=== PATIENT | female | born 1990 | race Caucasian/White ===

== ENCOUNTER 2020-07-23 08:34 | Emergency (ER) | payer OTHER, SELFPAY ==
[2020-07-23 08:59] VITALS: BP 116/65; PULSE 87; RESP 16; TEMP 36.9; O2SAT 97
--- NOTE | 2020-07-23 09:41 | ED.URI ---
HPI - URI/Sore Throat General Chief Complaint: Upper Respiratory Infection Stated Complaint: sore throat/drainage Time Seen by Provider: 07/23/20 09:00 Source: patient Mode of arrival: ambulatory Limitations: no limitations History of Present Illness HPI Narrative: Patient presents today with a 4-day history of sore throat, congestion, postnasal drip. Denies cough, fever, nausea, vomiting, diarrhea, body aches or weakness. She is currently 30 weeks . Currently rates her sore throat 5/10 and has tried no medication for symptoms prior to arrival. States her sore throat is worse in the mornings when she wakes up. She presents today with her son with similar symptoms. Denies any sick contacts, besides her small son. MD elicited complaint: sore throat Related Data Allergies Allergy/AdvReac Type Severity Reaction Status Date / Time No Known Allergies Allergy Unknown Verified 08/21/16 09:04 Review of Systems Review of Systems: Narrative: CONSTITUTIONAL: Denies body aches, fever, chills, or sweats. EYES: Denies visual changes, redness, or discharge. ENT: Denies rhinorrhea, or otalgia.+ Congestion, sore throat, postnasal drip CARDIOVASCULAR: Denies chest pain, palpitations, or edema. RESPIRATORY: Denies cough or dyspnea. GASTROINTESTINAL: Denies abdominal pain, nausea, vomiting, or diarrhea. GENITOURINARY: Denies dysuria or hematuria. SKIN: Denies rash, itching, or wounds. MUSCULOSKELETAL: Denies back pain, joint pain, or myalgia. NEUROLOGIC: Denies headache, numbness, tingling, or weakness. PSYCH: Denies depression or anxiety. [facility]LY [facility] Past Medical History Medical History (Updated 07/23/20 @ 09:44 by Ashlee Blank, [facility], ) History of hyperemesis gravidarum Social History Social History Smoking status: Never smoker Alcohol intake: never Comments At time of signature, I have reviewed and agree with nursing past medical, surgical, social and family history unless otherwise noted. Please see nursing chart for further information. There is no relevant family history pertinent to the presenting complaint Exam Narrative: Exam Narrative: GENERAL: Well-appearing, well-nourished, and in no acute distress. HEAD: Normocephalic, atraumatic. EYES: EOMI. No redness or drainage. Conjunctivae normal. ENT: Mucous membranes pink and moist. Nares clear. No rhinorrhea. TMs normal bilaterally. Throat normal with small amount of clear postnasal drainage.. Uvula midline. NECK: Normal AROM. Supple. No lymphadenopathy. CHEST: No respiratory distress. Clear to auscultation. HEART: Regular rate and rhythm. No murmur appreciated. Normal peripheral pulses. ABDOMEN: Soft, nontender, gravid, normal active bowel sounds. MUSCULOSKELETAL: No bony tenderness. EXTREMITIES: Normal range of motion. No edema. SKIN: Warm, dry, no rash. Capillary refill normal. Normal skin turgor. NEURO: No focal deficits. Alert and oriented x3. Gait steady. PSYCH: Normal affect. No signs of depression or anxiety. Course Vital Signs Vital signs: Vital Signs Temperature 98.4 F 07/23/20 08:59 Pulse Rate 87 07/23/20 08:59 Respiratory Rate 16 07/23/20 08:59 Blood Pressure 116/65 07/23/20 08:59 Pulse Oximetry 97 07/23/20 08:59 Temperature 98.4 F 07/23/20 08:59 Pulse Rate 87 07/23/20 08:59 Respiratory Rate 16 07/23/20 08:59 Blood Pressure 116/65 07/23/20 08:59 Pulse Oximetry 97 07/23/20 08:59 Reviewed MDM - URI/Sore Throat Differential Diagnosis Differential diagnosis: Likely upper respiratory infection, otitis media, sinusitis, viral infection, pharyngitis and other (Strep throat) Lab Data Attestation: I reviewed the patient's lab results. Labs: Strep Screen Presumptive Negative *(Reference Range: Negative)* Critical Care Time Critical Care Time Critical Care Time: No Discharge Plan Discharge Clinical Impression: Upper respiratory infectio
== END 2020-07-23 09:37 | disposition home or self-care (01) ==
PROVIDERS: Emergency Provider Nurse Practitioner; PCP Family Medicine
DX: J06.9 Acute upper respiratory infection, unspecified (principal)
CPT/HCPCS: 87081; 87880; 99203; G0463

== ENCOUNTER 2020-09-27 04:58 | Inpatient (IN) | payer OTHER, SELFPAY ==
[2020-09-27] VITALS (80 sets, daily range): BP systolic 85–136; BP diastolic 39–119; PULSE 68–128; RESP 16–18; TEMP 36.4–36.8; O2SAT 96–100; BMI 37.9
--- NOTE | 2020-09-27 04:58 | OBADM ---
This patient, Abimbola Coppola, admitted to the OB room Labor/Delivery/Recovery 102 for observation. Patient/family oriented to hospital policies and general routines including ID bracelet, bed and alarms, visiting hours, pain management, procedures, bathroom and other care routines, personal items, smoking policy, room service/diet, and visiting hours. Patient/Family are encouraged to report perceived risks to care and to ask questions if they do not understand what they are told or what they should do.
[2020-09-27 05:34] LABS: Basophils Percent Auto 0.3 % (0.2-1.2); Eosinophils Absolute Auto 0.2 K/mm3 (0-0.3); Eosinophils Percent Auto 1.4 % (0-4.4); Hematocrit 35.3 % (37.0-47.0); Hemoglobin 11.4 g/dL (12.0-15.0); Immature Granulocyte Absolute 0.18 K/mm3 (0.00-0.031); Immature Granulocyte Percent A 1.5 % (0-0.5); Lymphocytes Absolute Auto 3.65 K/mm3 (0.9-3.2); Lymphocytes Percent Auto 29.7 % (18.3-44.2); Mean Corpuscular HGB Conc 32.3 g/dl (32-36); Mean Corpuscular Hemoglobin 26.1 pg (26-34); Mean Platelet Volume 10.6 fl (7.4-10.4); Monocytes Absolute Auto 0.9 K/mm3 (0.1-0.6); Monocytes Percent Auto 7.4 % (2.6-8.5); Neutrophils Absolute Auto 7.3 K/mm3 (1.3-6.7); Neutrophils Percent Auto 59.7 % (45.5-73.1); Platelet Count Result 210 k/mm3 (150-375); Red Blood Count 4.36 M/mm3 (4.2-5.4); Red Cell Distribution Width 14.5 % (11.5-14.5); White Blood Count 12.3 K/mm3 (4.5-10.0)
[2020-09-27] MEDS: AMPICILLIN 2 GM/NS 100 ML 2 GM/100 ML BAG IVPB (05:38)
[2020-09-27] MEDS: LACTATED RINGERS 1,000 ML 125 ML IV CONT ×3 (05:38→09:50)
--- NOTE | 2020-09-27 05:45 | P.HP_ITS ---
H&P: HPI History of Present Illness Date/Time: 09/27/20 05:45 30-year-old 3 para 2 whose last menstrual period was 12/29/2019, EDC is 10/04/2020, presents at 30 weeks gestation for induction labor. She has a history of 2 vaginal deliveries 1 was 0.25 degree this baby's last ultrasound showed it to be 5 lb 10 oz at 37 weeks. She is positive for group B strep. She had a history of gestational diabetes with an abnormal 1hour but a normal 3hour GTT this . Chief Complaint: iol Review of Systems Review of Systems: All systems reviewed & are unremarkable except as noted in HPI and below PMFSH Past Medical History Medical History History of hyperemesis gravidarum Social History Social History Smoking status: Never smoker Alcohol intake: never Spiritual care concerns: No Meds Home Medications and Allergies Home Medications Medication Instructions Recorded Confirmed Type [id number] fum-folic ac-om3 28 pkg PO DAILY 09/12/20 09/27/20 History [One Daily ] Allergies Allergy/AdvReac Type Severity Reaction Status Date / Time No Known Allergies Allergy Unknown Verified 09/12/20 16:37 Vital Signs Vital Signs - 24 hr 09/27/20 05:32 Pulse Rate 88 Blood Pressure 132/80 Exam Const: General: no acute distress Eyes: General: appearance normal, both eyes and all related structures Neck: Neck: supple and no JVD Thyroid: thyroid normal Resp: Effort & Inspection: normal respiratory effort Auscultation: clear to auscultation bilaterally Cardio: Rate: regular rate Rhythm: regular rhythm GI: Inspection: non-distended GI Palp: Yes Soft to palpation, No Tenderness to palpation present (GI) and No Guarding due to palpation present (GI) Auscultation: normal bowel sounds : External Female Exam: normal external appearance Speculum Exam - Vag juan ramon: normal appearance of the vagina Speculum Exam - Cervix: normal appearance of the cervix and Cervical os closed ( Crevix 3/75/1. AROM clear. FHTs were reassuring) Skin: General skin exam: no rashes or lesions noted Extrem: General: normal to inspection and no edema Psych: Mental Status: mental status grossly normal Affect: normal affect H&P: Results Labs Labs: Short CBC 09/27/20 Range/Units 05:20 WBC 12.3 H (4.5-10.0) K/mm3 Hgb 11.4 L (12.0-15.0) g/dL Hct 35.3 L (37.0-47.0) % Plt Count 210 (150-375) k/mm3 Assessment and Plan Additional Plan impression: Term IUP with favorable cervix and positive group B strep Plan: Medical induction of labor. Group B strep prophylaxis. Spontaneous vaginal delivery is expected. She has an epidural candidate
[2020-09-27 06:52] LABS: Rapid Plasma Reagin Non-Reactive (NonReactive)
[2020-09-27] MEDS: OXYTOCIN 30 UNITS/NS 500 ML 30 UNITS/500 ML BAG IV CONT (07:00)
--- NOTE | 2020-09-27 07:32 | WPDANESEPP ---
Anes - Eval Pre Procedure Procedure: labor epidural Date/Time: 09/27/20 07:32 Surgeon: christina Preop Diagnosis: pain during labor Pre Op Diagnosis: IOL Patient Data Age: 30 Gender: F Height: 1.57 m Weight: 94 kg Last Vital Signs Temp 36.6 C 09/27/20 06:18 Pulse 79 09/27/20 07:30 Resp 18 09/27/20 05:33 BP 111/77 09/27/20 07:30 Allergies Allergy/AdvReac Type Severity Reaction Status Date / Time No Known Allergies Allergy Unknown Verified 09/12/20 16:37 Home Medications Medication Instructions Recorded Confirmed Type [id number] fum-folic ac-om3 28 pkg PO DAILY 09/12/20 09/27/20 History [One Daily ] Laboratory Tests 09/27/20 09/27/20 05:20 05:20 WBC 12.3 K/mm3 H K/mm3 (4.5-10.0) RBC 4.36 M/mm3 M/mm3 (4.2-5.4) Hgb 11.4 g/dL L g/dL (12.0-15.0) Hct 35.3 % L % (37.0-47.0) MCV 81.0 fl fl (80-100) MCH 26.1 pg pg (26-34) MCHC 32.3 g/dl g/dl (32-36) RDW 14.5 % % (11.5-14.5) Plt Count 210 k/mm3 k/mm3 (150-375) MPV 10.6 fl H fl (7.4-10.4) Immature Gran % (Auto) 1.5 % H % (0-0.5) Neut % (Auto) 59.7 % % (45.5-73.1) Lymph % (Auto) 29.7 % % (18.3-44.2) [place] % (Auto) 7.4 % % (2.6-8.5) Eos % (Auto) 1.4 % % (0-4.4) Baso % (Auto) 0.3 % % (0.2-1.2) Lymph # (Auto) 3.65 K/mm3 H K/mm3 (0.9-3.2) [place] # (Auto) 0.9 K/mm3 H K/mm3 (0.1-0.6) Eos # (Auto) 0.2 K/mm3 K/mm3 (0-0.3) Baso # (Auto) 0.0 K/mm3 K/mm3 (0.0-0.1) Abs Immat Gran (auto) 0.18 K/mm3 H K/mm3 (0.00-0.031) Absolute Neuts (auto) 7.3 K/mm3 H K/mm3 (1.3-6.7) Absolute Nucleated RBC 0.0 K/mm3 K/mm3 (0.0-0.012) Nucleated RBC % 0.0 % % (0.0-0.2) RPR Non-reactive (NonReactive) Patient hx anesthesia problems: none Family hx anesthesia problems: none [facility] Past Medical History Medical History (Updated 09/27/20 @ 07:32 by Martha Lopes CRNA) History of hyperemesis gravidarum IUP (intrauterine ), incidental Social History Social History Smoking status: Never smoker Alcohol intake: never Spiritual care concerns: No Exam Day of Procedure 09/27/20 07:32
[2020-09-27] MEDS: AMPICILLIN 1 GM/NS 50 ML 1 GM/50 ML BAG IVPB (09:21)
--- NOTE | 2020-09-27 11:42 | PM.OBPRVD ---
OB - Delivery Note Procedure Delivery date: 09/27/20 Procedure: mil gbs prophylaxis Intrapartal events: None Induction method: AROM Delivery augmentation: pitocin Delivery monitor: external FHT Route of delivery: Episiotomy description: None Laceration Description: None Specimen: No Quantitative Blood Loss (ml): 58 Anesthesia type: Epidural Disposition: floor Complications: amp x 2 for gbs Baby Date of : 09/27/20 Time of : 11:16 Weeks of gestation at delivery: 39 Infant gender: Female presentation: vertex position: Right Occiput Anterior Placenta delivery description: Spontaneous cord vessel description: 3 Vessels score one minute: 8 score five minutes: 9
[2020-09-27] MEDS: OXYTOCIN 30 UNITS/NS 500 ML 30 UNITS/500 ML BAG 125 UNITS IV CONT (11:52)
[2020-09-27] MEDS: BENZOCAINE 20% AER SPR (*SP) 56 GM CAN 1 SPRAY TOPICAL (13:49)
[2020-09-27] MEDS: IBUPROFEN 600 MG TABLET PO ×2 (13:49→19:00)
[2020-09-27] MEDS: WITCH HAZEL 40 PADS 1 PAD TOPICAL (13:49)
--- NOTE | 2020-09-27 14:05 | OBPPTRN ---
Patient transferred to post room #278 via wheelchair. Support person present. Oriented to unit, room, information board, rooming in, admission packet and security measures. Patient verbalizes understanding. FOB and baby accompanied patient to the room
[2020-09-27] MEDS: DOCUSATE SODIUM 100 MG CAPSULE PO (20:58)
[2020-09-28] MEDS: IBUPROFEN 600 MG TABLET PO ×4 (03:54→23:01)
[2020-09-28 04:00] VITALS: BP 104/65; PULSE 76; RESP 18; TEMP 36.5; O2SAT 100
[2020-09-28] MEDS: DOCUSATE SODIUM 100 MG CAPSULE PO ×2 (04:02→09:42)
[2020-09-28 05:26] LABS: Hematocrit 32.1 % (37.0-47.0); Hemoglobin 10.2 g/dL (12.0-15.0)
--- NOTE | 2020-09-28 08:53 | PM.OBPNVD ---
OB - PN: Subj Subjective Date/time seen: 09/28/20 08:53 Narrative: Pain OK. OB - PN: Obj Data Labs CBC & Chem 7: 09/28/20 03:58 Labs: Laboratory Results - last 24 hr 09/28/20 03:58 Hgb 10.2 L Hct 32.1 L OB - PN A/P Plan Comments: A: PPD#1, doing well. P: Routine care. Exam Psych: Other: AVSS ABD soft, nontender, fundus firm EXT nontender
--- NOTE | 2020-09-28 08:53 | PM.OBDSVD ---
DS: Admitting Diagnosis Admitting Diagnosis Admitting Diagnosis: IUP at term DS: Discharge Diagnosis Discharge Diagnosis (1) (normal spontaneous vaginal delivery): Code(s): O80 - Encounter for full-term uncomplicated delivery Status: Acute OB - DS: Summary OB Procedures : None OB Procedures Intrapartum: Spontaneous Vag Delivery OB Procedures: : None DS: Data Data Completed and Pending Labs on day of discharge: Labs from last 24 hours 09/28/20 03:58 Hgb 10.2 L Hct 32.1 L Discharge Plan Discharge Attending physician on discharge: Quentin Johnson Discharging Clinician: Isiah Burks Patient Disposition: Home, Self-Care Activity: pelvic rest Diet: regular Discharge Instructions: Call or return if temperature above 100.4? F, increased abdominal pain, increased vaginal bleeding or any new problems. Stand Alone Forms: General Discharge Information Follow-up/Referrals: Quentin Johnson MD [Physician] - 6 Weeks Discharge Medications: New ibuprofen 600 mg tablet 600 mg PO Q6H PRN (Reason: cramps) Qty: 30 RF: 0 No Action One Daily 28 mg iron- 800 mcg Combo Pack 28 pkg PO DAILY RF: 0 Date of admission: 09/27/20 04:58 Primary Care Provider: Devante Mcfarlane Admitting Provider: Quentin Johnson Attending physician on admission: Quentin Johnson Condition: Stable
--- NOTE | 2020-09-28 09:32 | WPDANLDPN2 ---
Anes-Prog Note L&D Date/Time: 09/28/20 09:32 Comfortable throughout: labor and delivery Neuraxial method: epidural Epidural/Spinal procedure site: clean & non-tender Neuro status: Neuro function grossly intact. Cardiovascular status: normal Respiratory status: normal Airway patency: baseline Mental status: baseline Post-Op hydration status: normal Vital Signs: Last Vital Signs Temp 36.5 C 09/28/20 04:00 Pulse 76 09/28/20 04:00 Resp 18 09/28/20 04:00 BP 104/65 09/28/20 04:00 Pulse Ox 100 09/28/20 04:00 Pain score (VAS): 0/10. Patient resting in bed at time of assessment, appears comfortable. Post-procedural complaints: none Patient feedback: Patient satisfied with anesthetic care.
[2020-09-28 09:40] VITALS: BP 106/70; PULSE 79; RESP 18; TEMP 36.6; O2SAT 96
[2020-09-28] MEDS: ACETAMINOPHEN 325 MG TABLET 650 MG PO ×2 (15:33→23:01)
--- NOTE | 2020-09-28 17:28 | PC.NURSE ---
Pt reports that she viewed the discharge DVD this afternoon.
[2020-09-28 19:15] VITALS: BP 114/70; PULSE 84; RESP 16; TEMP 36.3; O2SAT 100
[2020-09-29 08:20] VITALS: BP 120/74; PULSE 77; RESP 18; TEMP 36.8; O2SAT 97
[2020-09-29] MEDS: DOCUSATE SODIUM 100 MG CAPSULE PO (08:21)
[2020-09-29] MEDS: IBUPROFEN 600 MG TABLET PO (08:21)
[2020-09-29] MEDS: ACETAMINOPHEN 325 MG TABLET 650 MG PO (08:22)
--- NOTE | 2020-09-29 09:20 | PM.OBPNVD ---
OB - PN: Subj Subjective Date/time seen: 09/29/20 09:20 Narrative: Pain OK. Would like to go home. OB - PN: Obj Data Labs CBC & Chem 7: 09/28/20 03:58 OB - PN A/P Plan Comments: A: PPD#2, doing well. P: Home to f/u 6 weeks. Exam Psych: Other: AVSS ABD soft, nontender, fundus firm EXT nontender
[2020-09-30 08:31] VITALS: BP 116/81; PULSE 66; RESP 20; TEMP 37.1; O2SAT 96
== END 2020-09-29 12:44 | disposition home or self-care (01) | DRG 560 ==
LOC: ANHOB2 09-29 14:51 → ANHLDR 09-30 16:05 → ANHOB2 09-30 16:05
PROVIDERS: Admitting Provider Obstetrics & Gynecology; PCP Family Medicine; Visit Provider Obstetrics & Gynecology
DX: O99.824 Streptococcus B carrier state complicating childbirth (principal); Z37.0 Single live birth; Z3A.39 39 weeks gestation of pregnancy; O69.82X0 Labor and delivery complicated by other cord entanglement, without compression, not applicable or unspecified
CPT/HCPCS: 36415; 85014; 85018; 85025; 86592; 86850; 86900; 86901; A9270; J0290; J2590; J7120

== ENCOUNTER 2022-06-19 09:57 | Outpatient (CLI) | payer OTHER, SELFPAY ==
[2022-06-19 19:53] LABS: Basophils Percent Auto 0.3 % (0.2-1.2); Eosinophils Absolute Auto 0.7 K/mm3 (0-0.3); Eosinophils Percent Auto 7.7 % (0-4.4); Hematocrit 43.7 % (37.0-47.0); Hemoglobin 13.8 g/dL (12.0-15.0); Immature Granulocyte Absolute 0.03 K/mm3 (0.00-0.031); Immature Granulocyte Percent A 0.3 % (0-0.5); Lymphocytes Absolute Auto 2.25 K/mm3 (0.9-3.2); Lymphocytes Percent Auto 24.4 % (18.3-44.2); Mean Corpuscular HGB Conc 31.6 g/dl (32-36); Mean Corpuscular Hemoglobin 28.7 pg (26-34); Mean Corpuscular Volume 90.9 fl (80-100); Monocytes Absolute Auto 0.5 K/mm3 (0.1-0.6); Monocytes Percent Auto 5.7 % (2.6-8.5); Neutrophils Absolute Auto 5.7 K/mm3 (1.3-6.7); Neutrophils Percent Auto 61.6 % (45.5-73.1); Platelet Count Result 305 k/mm3 (150-375); Red Blood Count 4.81 M/mm3 (4.2-5.4); Red Cell Distribution Width 13.7 % (11.5-14.5); White Blood Count 9.2 K/mm3 (4.5-10.0)
[2022-06-19 20:03] LABS: Alanine Aminotransferase 16 U/L (6-35); Albumin Level 4.2 g/dL (3.5-5.1); Alkaline Phosphatase 69 U/L (38-126); Anion Gap 6 mmol/L (8-16); Aspartate Amino Transferase 40 U/L (14-36); Bilirubin,Total 0.3 mg/dL (0.2-1.3); Blood Urea Nitrogen 12 mg/dL (7-17); Calcium 8.9 mg/dL (8.4-10.2); Carbon Dioxide 27 mmol/L (22-30); Chloride 103 mmol/L (98-107); Cholesterol 249 mg/dL (0-200); Estimated Glomerular Filt Rate > 60; Glucose 91 mg/dL (65-110); HDL Direct 57 mg/dL; Potassium 4.2 mmol/L (3.4-5.0); Sodium 136 mmol/L (137-145); Triglycerides 241 mg/dL (<150)
[2022-06-19 20:14] LABS: LDL Cholesterol Direct 126 mg/dL
[2022-06-19 22:53] LABS: Hemoglobin A1C 5.1 % (<5.7)
== END 2022-06-19 09:58 | disposition home or self-care (01) ==
LOC: ANHGOSHLAB 09:58
PROVIDERS: PCP Family Medicine; Visit Provider Family Medicine
DX: E11.9 Type 2 diabetes mellitus without complications (principal); R42 Dizziness and giddiness
CPT/HCPCS: 36415; 80053; 80061; 83036; 84443; 85025

== ENCOUNTER 2022-07-06 08:48 | Outpatient (CLI) | payer OTHER, SELFPAY ==
--- NOTE | 2022-07-06 08:54 | ECHO_ITS ---
Patient Info Name: Abimbola Coppola Age: 32 years : 1990 Gender: Female Ht: 61 in Wt: 161 lbs BSA: 1.80 m2 HR: 54 bpm BP: 127 / 89 mmHg Technical Quality: Good Exam Date: 07/06/2022 9:09 AM Exam Location: [facility] Patient Status: Outpatient Admit Date: 07/06/2022 Staff Ordering Physician: Devante Mcfarlane MD Facility Attendant: Acacia Dee RDCS Attending Provider: Devante Mcfarlane MD Referring Physician: Denys DAVID; Exam Type: CA echo doppler color flow Study Info Indications R01.1 - Cardiac murmur, unspecified Complete two-dimensional, color flow and Doppler transthoracic echocardiogram is performed. Summary 1. Complete two-dimensional, color flow and Doppler transthoracic echocardiogram is performed. 2. Left ventricular chamber dimension is mildly enlarged. 3. Left ventricular systolic function is normal, estimated at 60-65%. 4. The left ventricular diastolic function is normal. 5. E/e' 5 is not elevated. 6. There is trace tricuspid valve regurgitation. 7. No pulmonary hypertension, estimated pulmonary arterial systolic pressure is 27 mmHg. 8. There is trace pulmonic regurgitation. Left Ventricle E/e' 5 is not elevated. Global longitudinal strain is mildly abnormal at -16.2%. Left ventricular chamber dimension is mildly enlarged. Left ventricular systolic function is normal, estimated at 60-65%. The left ventricular diastolic function is normal. Right Ventricle Right ventricular systolic function is normal and with normal TAPSE 1.9 cm. Right ventricular chamber dimension is normal. Left Atria Left atrial chamber dimension is normal. Right Atria Right atrial chamber dimension is normal. Aortic Valve The aortic valve is trileaflet. There is no aortic valve stenosis. There is no aortic valve regurgitation. Pulmonic Valve There is trace pulmonic regurgitation. Mitral Valve There is no mitral valve stenosis. There is no mitral valve regurgitation. Tricuspid Valve There is trace tricuspid valve regurgitation. No pulmonary hypertension, estimated pulmonary arterial systolic pressure is 27 mmHg. Pericardium/Pleural There is no pericardial effusion. Inferior Vena Cava Normal inferior vena cava with >50% collapse upon inspiration consistent with normal right atrial pressure, 5 mmHg. Aorta The aortic root size at the sinus of Valsalva is normal. Left Ventricular Outflow Tract Name Value Normal LVOT 2D LVOT Diameter 2.0 cm LVOT Doppler LVOT Peak Gradient 4 mmHg LVOT Mean Gradient 2 mmHg LVOT VTI 22 cm LVOT VTI/AV VTI Ratio 1.0 LVOT Stroke Volume 70 ml LVOT CO 3.8 l/min LVOT CI 2.1 l/min/m2 Pulmonic Valve Name Value Normal RVOT Doppler -----
== END 2022-07-06 08:49 | disposition home or self-care (01) ==
LOC: ANHCARD 08:49
PROVIDERS: PCP Family Medicine; Visit Provider Family Medicine
DX: R01.1 Cardiac murmur, unspecified (principal)
CPT/HCPCS: 93306

== ENCOUNTER 2023-01-25 11:18 | Outpatient (CLI) | payer OTHER, SELFPAY | END 2023-01-25 11:19 | disposition home or self-care (01) | LOC: ANHGOSHLAB 11:19 | PROVIDERS: PCP Family Medicine; Visit Provider Family Medicine | DX: E03.9 Hypothyroidism, unspecified (principal) | CPT/HCPCS: 36415; 84443 ==